=== PATIENT | female | born 1995 | race Caucasian/White ===

== ENCOUNTER 2016-11-12 22:29 | Emergency (ER) | payer OTHER ==
--- NOTE | 2016-11-12 23:42 | ED ---
Ever Padilla Erika, scribed for Simon Benson MD on 11/12/16 at 2241 . Substance Abuse/Use - HPI Summary HPI Summary: Patient is a 21-year-old female BIBA to the ED intoxicated. 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 She reports constant nausea and vomiting, but denies abdominal pain. Patient denies drug and tobacco use. Patient denies medical problems. She is a student at [employer]. LEVEL 5 CAVEAT - INTOXICATED. - History Of Current Complaint Stated Complaint: ETOH Time Seen by Provider: 11/12/16 22:42 Hx Obtained From: Patient Onset/Duration of Drug/ETOH Abuse: Hours Ingestion History: Type/Name Of Drug - EtOH, Amount Ingested - "a lot" Timing Of Abuse: Binge Use Severity Currently: Moderate Character: Stuporous Aggravating Factor(s): Nothing Alleviating Factor(s): Nothing Associated Signs And Symptoms: Nausea, Vomiting - Allergies/Home Medications Allergies/Adverse Reactions: Allergies Allergy/AdvReac Type Severity Reaction Status Date / Time No Known Allergies Allergy Verified 11/12/16 22:42 PMH/Surg Hx/FS Hx/Imm Hx Endocrine/Hematology History: Denies: Hx Diabetes Cardiovascular History: Denies: Hx Hypertension - Family History Known Family History: Positive: Unknown - LEVEL 5 CAVEAT - INTOXICATED - Social History Occupation: Student - [employer] Lives: With Family Alcohol Use: Weekly Alcohol Amount: binge use - here for EtOH Hx Substance Use: No Substance Use Type: Reports: None Hx Tobacco Use: No Smoking Status (MU): Never Smoked Tobacco Review of Systems - ROS Summary Review of Systems Summary: LEVEL 5 CAVEAT - INTOXICATED Positive: Vomiting, Nausea. Negative: Abdominal Pain Neurological: Other - intoxicated All Other Systems Reviewed And Are Negative: No Physical Exam - Summary Physical Exam Summary: The patient is well-nourished in no acute distress and in no acute pain. The skin is warm and dry and skin color reflects adequate perfusion. There is good skin turgor. HEENT: The head is normocephalic and atraumatic. The pupils are equal and reactive. The conjunctivae are clear and without drainage. Nares are patent and without drainage. Mouth reveals moist mucous membranes and the throat is without erythema and exudate. The external ears are intact. Neck is supple with full range of motion and non-tender. Respiratory: Chest is non-tender. Lungs are clear to auscultation and breath sounds are symmetrical and equal. Cardiovascular: Heart is regular rate and rhythm. There is no murmur or rub auscultated. There is no peripheral edema and pulses are symmetrical and equal. Abdomen: The abdomen is soft and non-tender. There are normal bowel sounds heard in all four quadrants and there is no organomegaly palpated. Musculoskeletal: There is no back pain noted. Extremities are non-tender with full range of motion. There is good capillary refill. There is no peripheral edema or calf tenderness elicited. Neurological: Patient is alert follow commands well. She admits to being intoxicated. Psychiatric: Patient follows commands. Triage Information Reviewed: Yes Vital Signs On Initial Exam: Initial Vital Signs Temp 97.1 F 11/12/16 22:33 Pulse 93 11/12/16 22:33 Resp 18 11/12/16 22:33 BP 131/95 11/12/16 22:33 Pulse Ox 95 11/12/16 22:33 Vital Signs Reviewed: Yes Completion Of Physical Exam Limited Due To: Level 5 Diagnostics - Vital Signs Vital Signs Temp Pulse Resp BP Pulse Ox 11/12/16 22:52 59 97 11/12/16 22:51 99/61 11/12/16 22:33 97.1 F 93 18 131/95 95 - Laboratory Lab Results: Serum Alcohol 280 Lab Statement: Any lab studies that have been ordered have been reviewed, and results considered in the medical decision making process. Course/Dx - Course Assessment/Plan: A 21 y/o F presents to the ED intoxicated after drinking vodka. Associated symptoms include nausea and vomiting. A blood alcohol level was drawn. Patient will be discharged once sober. - Diagnoses Provider Diagnoses: Acute alcohol intoxication Discharge - Discharge Plan Condition: Stable Disposition: HOME Patient Education Materials: Alcohol Intoxication (ED) Referrals: [facility] NOE Johnson [Medical Doctor] - The documentation as recorded by the Ever lai Erika accurately reflects the service I personally performed and the decisions made by me, Simon Benson MD.
[2016-11-13 06:50] VITALS: BP 102/64
--- NOTE | 2016-11-13 06:55 | ED ---
Josué Padilla Salem, scribed for Michelet Lundberg on 11/13/16 at 0645 . Progress - Progress Note Progress Note: Pt is fine. Will be DC'd. Course/Dx - Diagnoses Provider Diagnoses: Acute alcohol intoxication The documentation as recorded by the Josué lai Salem accurately reflects the service I personally performed and the decisions made by Toño garcia Emmanuel.
== END 2016-11-13 06:50 | disposition home or self-care (01) ==
LOC: ED 22:29
DX: F10.129 Alcohol abuse with intoxication, unspecified (principal); R11.2 Nausea with vomiting, unspecified
CPT/HCPCS: 36415; 80320; 99283; G0480